=== PATIENT | female | born 1955 | race Caucasian/White ===

== ENCOUNTER 2016-05-13 14:18 | Observation (INO) | payer OTHER ==
--- NOTE | ~2016-05-13 | HP ---
History And Physical [place] [id number] [facility] [place]. [address] NAME: SHANNON VEGA : 53 STATUS : ADM Laisha PAT#: [id number] AGE: 61 ADM/REG DATE : 05/13/16 MR#: [id number] REPORT SERV DATE: 05/13/16 DICTATED BY: MARIA ELENA SAAVEDRA DATE: 05/13/16 REPORT STATUS : Draft TRANSCRIBED BY: [employer] DATE: 05/13/16 DATE OF ADMISSION: 05/13/2016 PRIMARY NEUROLOGIST: Shannon Aguilera M.D. CHIEF COMPLAINT: Extreme fatigue, chest pressure, and pain on the right side of the chest. HISTORY OF PRESENT ILLNESS: This is a very pleasant 61-year-old female with no prior history of coronary artery disease. She states a three-four week history of midsternal chest "pressure." She states over the last couple days she has also developed right-sided chest pain. She mentions increased shortness of breath as well as weakness also over the last several weeks. Her chest pain seems to be cause with activities such as when she walks to the mailbox. She will sit down and rest and it will eventually subside after approximately 15 minutes of resting. There have been no episodes of nocturnal chest pain. She denies any recent fever, cough, or chills. No lower extremity edema or calf tenderness. Also denies any recent palpitations, she saw her neurologist last week and mentioned the extreme fatigue and lightheadedness, and a TSH and vitamin B12 were checked. These were reportedly normal. The patient saw her primary care physician today and mentioned her symptoms and they administered sublingual nitroglycerin as well as a full-dose aspirin, obtained an EKG and recommended she come to the emergency department. Her EKG shows a chronic left bundle- branch block. Chest pain was not relieved with sublingual nitroglycerin nor with nitroglycerin paste in the emergency department. It does seem to get some relief with IV morphine. PAST MEDICAL HISTORY: 1. History of acoustic neuroma, status post surgical removal with intraoperative CVA in 2011. 2. Chronic left-sided facial pain, left paresthesia and some dexterity loss as well as intermittent blurred vision subsequent to the CVA in 2011. 3. Urinary frequency. 4. Received temporary PEG secondary to dysphagia after the cerebrovascular accident. Also history of Schatzki ring placement and esophageal dilatation to assist with swallowing. 5. Left bundle-branch block. 6. Normal pulse oximetry overnight study in 2015. 7. Anxiety and depression. 8. Mixed hyperlipidemia. 9. GERD. SURGICAL HISTORY: 1. Tonsillectomy. 2. Partial hysterectomy. CURRENT HOME MEDICATIONS: Fioricet one tab p.r.n., bethanechol 10 mg daily, Wellbutrin 75 daily, Colace one cap p.o. three times per week, Neurontin 200 mg daily and 400 mg at bedtime, pravastatin 40 at bedtime, Zantac 300 mg daily. History And Physical [address] [address] NAME: SHANNON VEGA : 53 STATUS : ADM Laisha PAT#: [id number] AGE: 61 ADM/REG DATE : 05/13/16 MR#: [id number] REPORT SERV DATE: 05/13/16 DICTATED BY: MARIA ELENA SAAVEDRA DATE: 05/13/16 REPORT STATUS : Draft TRANSCRIBED BY: JONES DATE: 05/13/16 ALLERGIES: SULFA CAUSES ITCHING AND HIVES. STEROIDS ALSO CAUSES ITCHING AND HIVES. SOCIAL HISTORY: The patient is a . Lives with her one daughter. She has never smoked. Denies alcohol or illicit drug use. She uses a cane to assist with ambulation. She drinks five glasses of caffeine daily usually sweet tea. FAMILY HISTORY: Mother with paroxysmal atrial fibrillation, alive at age 88. Father with an NH in his 60s, alive at age 82. No premature cardiovascular among her first-degree relatives. REVIEW OF SYSTEMS: Negative except as indicated above. PHYSICAL EXAMINATION: VITAL SIGNS: Blood pressure 125/56, heart rate 70, temperature 97.2, pulse oximetry 98% on room air. GENERAL: Well developed, well nourished, in no acute distress. HEENT: Anicteric. Normal EOM. Head is normocephalic. PERRLA, no xanthelasma. NECK: Supple. No JVD. Carotids normal without bruits. LUNGS: Clear to auscultation bilaterally anterior and posterior. Respirations even and unlabored. CARDIAC: S1, S2. Regular rate and rhythm. No murmurs, rubs, or gallops appreciated. PMI nondisplaced. There is some tenderness to palpation over the right rib cage intercostally. ABDOMEN: Normal bowel sounds. Soft and nontender to palpation. No masses or organomegaly. EXTREMITIES: No peripheral edema. DP/PT and radial pulses palpable bilaterally. No clubbing or cyanosis. SKIN: Warm and dry. Normal turgor. No pallor or cyanosis. MUSCULOSKELETAL: Moving all extremities x4. Normal muscle strength. NEURO/PSYCH: Alert and oriented with appropriate affect. LABORATORY DATA: Sodium 143, potassium 4.0, BUN 8, creatinine 0.8, glucose 91. White blood count 6.7, hemoglobin 13.2, hematocrit 39.7. Troponin less than 0.02. Chest x-ray shows no acute cardiopulmonary processes. EKG interpreted by myself indicates sinus rhythm with left bundle-branch block and some repolarization changes in the lateral leads. ASSESSMENT/PLAN: 1. Substernal chest pain that appears to be exertional in this 61-year-old female with cardiovascular risk factors of hyperlipidemia. Her initial presentation is negative for acute coronary syndrome. She also reports significant dyspnea associated with the chest pain for the last several weeks. We are planning to admit her to our chest pain observation unit. If second troponin remains unchanged, we will pursue a nuclear stress testing in the morning. If this is low risk, I will plan to discharge her home with an outpatient echocardiogram to further investigate the dyspnea next week some time and have the patient follow up with her primary care physician. If any indication of ischemia on stress testing, we will plan to consult Cardiology. 2. Left bundle-branch block, chronic. The patient will need to have a vasodilators History And Physical [address] [address] NAME: SHANNON VEGA : 53 STATUS : ADM Laisha PAT#: [id number] AGE: 61 ADM/REG DATE : 05/13/16 MR#: [id number] REPORT SERV DATE: 05/13/16 DICTATED BY: MARIA ELENA SAAVEDRA DATE: 05/13/16 REPORT STATUS : Draft TRANSCRIBED BY: JONES DATE: 05/13/16 nuclear stress test. 3. History of cerebrovascular accident during a neuroma surgery with residual deficits. No acute changes. Continue to follow up with her outpatient neurologist. 4. History of gastroesophageal reflux disease and prior esophageal dilatations. The patient is on Zantac. We will continue. CHRIS/JONES Maria Elena Saavedra NP / [id number] CC: ANGIE Schaefer M.D.
[2016-05-13 11:17] LABS: BASOPHILS 0.4 %; BASOPHILS ABSOLUTE 0.03 10/3/uL (0.0-0.16); EOSINOPHILS 3.1 %; EOSINOPHILS ABSOLUTE 0.21 10/3/uL (0.0-0.53); ER CBC TAT 0 Hrs 09 Mins; HEMATOCRIT 39.7 % (36.0-48.0); HEMOGLOBIN 13.2 g/dL (12.0-16.0); IMMATURE GRANULOCYTES 0.1 %; IMMATURE GRANULOCYTES ABSOLUTE 0.01 10/3/uL (0.0-0.11); LYMPHOCYTES 25.3 %; LYMPHOCYTES ABSOLUTE 1.69 10/3/uL (0.67-4.30); MEAN CORPUS HGB CONC 33.2 g/dL (32.0-36.0); MEAN CORPUSCULAR HEMOGLOB 29.7 pg (26.0-34.0); MEAN CORPUSCULAR VOLUME 89.4 fL (80-100); MONOCYTES 8.8 %; MONOCYTES ABSOLUTE 0.59 10/3/uL (0.21-1.20); NEUTROPHILS 62.3 %; NEUTROPHILS ABSOLUTE 4.15 10/3/uL (2.02-8.40); PLATELET COUNT 201 10/3/uL (150-400); RBC DISTRIBUTION WIDTH 13.4 % (12.0-16.0); RED CELL COUNT 4.44 10/6/uL (4.0-5.6); WHITE BLOOD CELLS 6.7 10/3/uL (4.5-10.5)
[2016-05-13 11:18] LABS: MANUAL DIFF NO %
[2016-05-13 11:31] LABS: BUN (BLOOD UREA NITROGEN) 8 MG/DL (6-23); CALCIUM, SERUM 9.3 MG/DL (8.5-10.4); CHEST PAIN PROFILE TAT 0 Hrs 23 Mins; CHLORIDE, SERUM 106 MMOL/L (96-112); CO2 (CARBON DIOXIDE) 32 MMOL/L (24-34); CREATININE 0.89 MG/DL (0.55-1.02); GFR AFRICAN AMERICAN 81 ML/MIN (>=60); GFR NON AFRICAN AMERICAN 69 ML/MIN (>=60); GLUCOSE, SERUM 91 MG/DL (60-99); SODIUM, SERUM 143 MMOL/L (135-148); TROPONIN I <0.02 NG/ML (<0.05)
[2016-05-13 11:33] LABS: PARTIAL THROMBO TIME 31.2 SEC (22.5-37.2); PROTIME (NOT ORD) 13.5 SEC (12.0-14.5)
[~2016-05-13 14:18] MED LIST: AMB5 PO; BETHAN10B PO; FIORICET 50-301 EACH PO; FLEX PO; KLONO5 PO; NEUR100 PO; PRAVACHOL40 MG PO; WELLSR150 PO; ZANTAC300 MG PO; ZETIA PO
[2016-05-13] MEDS ORDERED: DSS PO (14:19)
[2016-05-13] MEDS ORDERED: NEUR400 PO (14:19)
[2016-12-02] MEDS ORDERED: TOPXL25 PO (17:38)
[2016-12-02] MEDS ORDERED: [UNRECOGNIZED DRUG - OTHER] PO (17:38)
[2016-12-02] MEDS ORDERED: CYANO1000T PO (17:39)
[2016-12-02] MEDS ORDERED: CELEXA20 PO (17:39)
[2016-12-02] MEDS ORDERED: METHOC500B PO (17:39)
[2016-12-02] MEDS ORDERED: BENTYL10 PO (17:39)
== END 2016-05-14 11:49 | disposition home or self-care (01) ==
LOC: ER 14:18 → CDU1 15:31 → CDU2 16:51
PROVIDERS: Hospitalist
DX: R07.9 Chest pain, unspecified (principal); F41.9 Anxiety disorder, unspecified; K21.9 Gastro-esophageal reflux disease without esophagitis; F32.9 Major depressive disorder, single episode, unspecified; E78.5 Hyperlipidemia, unspecified; R35.0 Frequency of micturition; I69.398 Other sequelae of cerebral infarction; R20.2 Paresthesia of skin; R13.10 Dysphagia, unspecified; K22.2 Esophageal obstruction; I44.7 Left bundle-branch block, unspecified; Z90.89 Acquired absence of other organs; Z90.711 Acquired absence of uterus with remaining cervical stump; Z93.1 Gastrostomy status; Z88.8 Allergy status to other drugs, medicaments and biological substances; Z88.2 Allergy status to sulfonamides; Z79.899 Other long term (current) drug therapy; Z98.890 Other specified postprocedural states
CPT/HCPCS: 71020; 78452; 80048; 83735; 84484; 85025; 85610; 85730; 93005; 93017; 96374; 96375; 99285; A9270-GY; A9502; G0378; J0153; J2405